=== PATIENT | female | born 1985 | race Two or more races ===

== ENCOUNTER 2018-08-28 19:53 | Emergency (ER) | payer MEDICAID, OTHER ==
[~2018-08-28] VITALS: Ht 162.6 cm; Wt 66.2 kg
[2018-08-28 21:09] VITALS: BP 109/70
== END 2018-08-28 23:03 | disposition left against medical advice (07) ==
LOC: ER 19:53
DX: J02.9 Acute pharyngitis, unspecified (principal); H92.02 Otalgia, left ear; Z53.21 Procedure and treatment not carried out due to patient leaving prior to being seen by health care provider